=== PATIENT | male | born 1985 | race Caucasian/White ===

== ENCOUNTER → 2017-01-29 | Outpatient (CLI) | payer BC ==
--- NOTE | 2017-01-29 18:43 | ECHOF ---
Referral Reason:Z82.49 Family hx of bicuspid aortic valve MEASUREMENTS -------- HEIGHT: 180.3 cm WEIGHT: 80.7 kg BP: 141/76 RVIDd: 2.4 cm (< 3.3) IVSd: 0.7 cm (0.6 - 1.1) LVIDd: 4.0 cm (3.9 - 5.3) LVPWd: 0.8 cm (0.6 - 1.1) IVSs: 1.2 cm LVIDs: 2.8 cm LVPWs: 1.2 cm LAESV Index (A-L): 11.10 ml/m Ao Diam: 3.2 cm (2.0 - 3.7) AV Cusp: 1.9 cm (1.5 - 2.6) LA Diam: 3.1 cm (2.7 - 3.8) MV EXCURSION: 16.095 mm (> 18.000) MV EF SLOPE: 140 mm/s (70 - 150) EPSS: 1.2 cm MV E Harrison: 1.00 m/s MV DecT: 242 ms MV A Harrison: 0.64 m/s MV E/A Ratio: 1.57 RAP: 5.00 mmHg RVSP: 11.07 mmHg FINDINGS -------- Sinus rhythm. This was a technically good study. Overall left ventricular systolic function is normal with, an EF between 55 - 60 %. The right ventricle is normal in size and function. Normal LA size by volume 22+/-6 ml/m2. The right atrium is normal in size. The aortic valve is trileaflet and appears structurally normal. The mitral valve leaflets are mildly thickened. There is trace mitral regurgitation. Trace tricuspid regurgitation present. There is no evidence of pulmonary hypertension. The right ventricular systolic pressure, as measured by Doppler, is 11.07mmHg. The pulmonic valve is normal. The aortic root size is normal. Normal inferior vena cava with normal inspiratory collapse consistent with estimated right atrial pressure of 5 mmHg. The pericardium is normal. There is no pericardial effusion. CONCLUSIONS -------- 1. Sinus rhythm. 2. The aortic root size is normal. 3. There is no pericardial effusion. 4. This was a technically good study. 5. Normal LA size by volume 22+/-6 ml/m2. 6. The aortic valve is trileaflet and appears structurally normal. 7. The mitral valve leaflets are mildly thickened. 8. There is trace mitral regurgitation. 9. Trace tricuspid regurgitation present. 10. There is no evidence of pulmonary hypertension. 11. The right ventricular systolic pressure, as measured by Doppler, is 11.07mmHg. COOK RELIEF: Chivo Cardona RDCS
== END | disposition home or self-care (01) ==
LOC: RADECHMAIN 15:56
PROVIDERS: ATTEND Family Medicine
DX: Z09 Encounter for follow-up examination after completed treatment for conditions other than malignant neoplasm (principal); I08.1 Rheumatic disorders of both mitral and tricuspid valves
CPT/HCPCS: 93306

== ENCOUNTER → 2017-02-04 | Outpatient (CLI) | payer BC ==
[2017-02-04 19:26] LABS: ALT 37 U/L (21-72); AST 24 U/L (17-59); Alkaline Phosphatase 65 U/L (38-126); Anion Gap 12 mmol/L; Basophils # (A) 0.1 k/uL (0-0.2); Basophils % (A) 1 %; Blood Urea Nitrogen 16 mg/dL (9-20); CH 32.7; CHCM 32.8; Calcium 9.5 mg/dL (8.4-10.2); Carbon Dioxide 27 mmol/L (22-30); Chloride 103 mmol/L (98-107); Cholesterol 155 mg/dL (<200); Eosinophils # (A) 0.2 k/uL (0-0.7); Eosinophils % (A) 4 %; Glucose 96 mg/dL (74-99); HCT 49.4 % (39.0-53.0); HDL Cholesterol 41 mg/dL (40-60); HGB 15.4 gm/dL (13.0-17.5); Luc % (Auto) 2; Lymphocytes # (A) 1.4 k/uL (1.0-4.8); Lymphocytes % (A) 30 %; MCH 31.4 pg (25.0-35.0); MCHC 31.2 g/dL (31.0-37.0); MCV 100.3 fL (80.0-100.0); Monocytes # (A) 0.3 k/uL (0-1.0); Monocytes % (A) 6 %; Neutrophils # (A) 2.7 k/uL (1.3-7.7); Neutrophils % (A) 57 %; Non-African American GFR(MDRD) >60 (>60 ml/min/1.73 sqM); Potassium 4.4 mmol/L (3.5-5.1); RBC 4.92 m/uL (4.30-5.90); RDW 13.1 % (11.5-15.5); Sodium 142 mmol/L (137-145); Total Bilirubin 0.9 mg/dL (0.2-1.3); Total Protein 7.1 g/dL (6.3-8.2); WBC 4.8 k/uL (3.8-10.6); WBC (Perox) 4.75
== END ==
LOC: MMGSC 11:47
PROVIDERS: ATTEND Family Medicine
DX: Z00.00 Encounter for general adult medical examination without abnormal findings (principal)
CPT/HCPCS: 36415; 80053; 80061; 84439; 84443; 85025

== ENCOUNTER 2018-05-16 19:05 | Emergency (ER) | payer BC, OTHER ==
[2018-05-16 19:13] VITALS: BP 139/92; PULSE 138; RESP 18; TEMP 97.8
[2018-05-16] MEDS ORDERED: SODIUM CHLORIDE 0.9% 1,000 ML IV STA (19:42)
[2018-05-16] MEDS ORDERED: LORazepam 1 MG TAB PO STA (20:02)
--- NOTE | 2018-05-16 20:05 | ED ---
Skin/Abscess/FB HPI - General Chief complaint: Skin/Abscess/Foreign Body Stated complaint: infected cyst Time Seen by Provider: 05/16/18 19:20 Source: patient, RN notes reviewed, old records reviewed Mode of arrival: ambulatory Limitations: no limitations - History of Present Illness Initial comments: 33-year-old male presents today with chief complaint of scalp infection. Patient was found to be tachycardic at 130 540 bpm. Patient was sent of fevers or chills. He reports she's noticed the scalp infection for the past 3 days. Patient reports he did drink arrival. He does report history of anxiety. - Related Data Previous Rx's Medication Instructions Recorded Sulfamethox-Tmp 800-160Mg [Bactrim 1 tab PO Q12HR #20 tab 05/16/18 DS 800-160 mg] Allergies Allergy/AdvReac Type Severity Reaction Status Date / Time No Known Allergies Allergy Verified 05/16/18 19:53 Review of Systems ROS Statement: Those systems with pertinent positive or pertinent negative responses have been documented in the HPI. ROS Other: All systems not noted in ROS Statement are negative. Past Medical History Past Medical History: No Reported History History of Any Multi-Drug Resistant Organisms: None Reported Past Surgical History: Hernia Repair Past Psychological History: No Psychological Hx Reported Smoking Status: Current every day smoker Past Alcohol Use History: Occasional Past Drug Use History: None Reported General Exam Limitations: no limitations Course Vital Signs 05/16/18 19:11 Temperature 97.8 F Pulse Rate 138 H Respiratory 18 Rate Blood Pressure 139/92 O2 Sat by Pulse 100 Oximetry Medical Decision Making 05/16/18 21:30 EKG performed at 1922 shows sinus tachycardia otherwise normal EKG. Ventricular rate of 135 beats were minute. WA interval is 146 most seconds. QRS duration is 72 ms. QT QTc is 286/429 ms. Disposition Clinical Impression: Tachycardia, Scalp abscess Disposition: Left Against Medical Advice Condition: Good Instructions: Abscess (ED) Additional Instructions: Patient advised to have a close follow up with primary care physician in regards to tachycardia. Take the medications as prescribed. Return to emergency department if any alarming signs or symptoms occur. Prescriptions: Sulfamethox-Tmp 800-160Mg [Bactrim DS 800-160 mg] 1 tab PO Q12HR #20 tab Is patient prescribed a controlled substance at d/c from ED?: No Referrals: Maddy Montenegro MD [Primary Care Provider] - 1-2 days Time of Disposition: 20:19
== END 2018-05-16 20:26 | disposition left against medical advice (07) ==
LOC: EC 19:05
DX: L02.811 Cutaneous abscess of head [any part, except face] (principal); R00.0 Tachycardia, unspecified; F17.200 Nicotine dependence, unspecified, uncomplicated
CPT/HCPCS: 99283